=== PATIENT | female | born 1980 | race Two or more races ===

== ENCOUNTER 2019-09-08 08:06 | Emergency (ER) | payer MEDICAID ==
[~2019-09-08] VITALS: Ht 170.2 cm; Wt 59.4 kg
--- NOTE | 2019-09-08 08:15 | NUR ---
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
--- NOTE | 2019-09-08 08:20 | NUR ---
DR. MENDOZA AT BEDSIDE FOR EVAL.
[2019-09-08] MEDS ORDERED: ONDANSETRON HCL/PF 4 MG/2 ML VIAL ONE (08:22)
[2019-09-08] MEDS ORDERED: MECLIZINE HCL 25 MG TABLET PO ONE (08:30)
[2019-09-08] MEDS ORDERED: ONDANSETRON HCL/PF 4 MG/2 ML VIAL IVP ONE (08:30)
[2019-09-08] MEDS ORDERED: IV NS 0.9% 1,000 ML BAG IV ONE (08:30)
[2019-09-08] MEDS ORDERED: MECLIZINE HCL 25 MG TABLET ONE (08:37)
[2019-09-08 08:40] LABS: BASOPHILS # (AUTO) 0.1 /CMM (0.0-0.2); BASOPHILS % (AUTO) 0.6 % (0.0-2.0); EOSINOPHILS % (AUTO) 1.3 % (0.0-6.0); HEMATOCRIT 40 % (33-45); HEMOGLOBIN 13.5 g/dL (11.5-14.8); LYMPHOCYTES # (AUTO) 1.4 /CMM (0.8-4.8); LYMPHOCYTES % (AUTO) 13.5 % (20.0-44.0); MEAN CORPUSCULAR HGB CONC 34 g/dl (31.0-36.0); MEAN CORPUSCULAR VOLUME 92 fL (82-100); MONOCYTES # (AUTO) 0.4 /CMM (0.1-1.30); MONOCYTES % (AUTO) 3.6 % (2.0-12.0); NEUTROPHILS # (AUTO) 8.5 /CMM (1.8-8.9); PLATELET COUNT (AUTO) 341 /CMM (150-450); RED BLOOD CELL COUNT(AUTO) 4.33 MIL/uL (4.0-5.2); WHITE BLOOD COUNT (AUTO) 10.5 K/uL (4.3-11.0)
[2019-09-08 08:43] LABS: CREATININE 0.7 mg/dL (0.6-1.3); POTASSIUM 3.9 mmol/L (3.5-5.1)
[2019-09-08 08:48] LABS: ALBUMIN 3.8 g/dL (3.4-5.0); BILIRUBIN,DIRECT 0.1 mg/dL (0.0-0.2); BILIRUBIN,TOTAL 0.3 mg/dL (0.2-1.0); TOTAL PROTEIN, SERUM 7.4 g/dL (6.4-8.2)
[2019-09-08 11:08] VITALS: BP 121/84
--- NOTE | 2019-09-08 11:08 | NUR ---
Patient discharged to home in stable condition. Written and verbal after care instructions given. Patient verbalizes understanding of instruction.
== END 2019-09-08 11:09 | disposition home or self-care (01) ==
LOC: ER 08:08
DX: H81.10 Benign paroxysmal vertigo, unspecified ear (principal); R11.2 Nausea with vomiting, unspecified
CPT/HCPCS: 36415; 70450; 80048; 80076; 83690; 84703; 85025; 96361; 96374; 99284; J2405; J7030; J8597